=== PATIENT | male | born 1960 | race Caucasian/White ===

== ENCOUNTER 2024-03-07 07:10 | Day surgery (SDC) | payer OTHER, SELFPAY ==
[2024-03-07] VITALS (11 sets, daily range): BP systolic 104–137; BP diastolic 72–108; PULSE 59–88; RESP 10–20; TEMP 36.3–36.9; O2SAT 98–100; BMI 29.0
--- NOTE | 2024-03-07 07:14 | EKG_ITS ---
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
[2024-03-07 07:41] LABS: Basophils # (Auto) 0.2 Thou/mm3 (0.0-0.2); Basophils % (Auto) 2 % (0-2.5); Eosinophils # (Auto) 0.5 Thou/mm3 (0.0-0.5); Eosinophils % (Auto) 4 % (0-10); Hematocrit 40.3 % (41.0-53.0); Hemoglobin 12.9 g/dL (13.5-16.0); Immature Granulocytes % (Auto) 0 % (0-0); Immature Granulocytes Auto 0.02 Thou/mm3 (0.00-0.00); Lymphocytes # (Auto) 2.3 Thou/mm3 (1.0-4.8); Lymphocytes % (Auto) 22 % (10-50); Mean Corpuscular Hemoglobin 27.2 pg (25.0-35.0); Mean Corpuscular Volume 85 fL (80-100); Monocytes # (Auto) 1.3 Thou/mm3 (0.0-0.8); Monocytes % (Auto) 12 % (0-12); Neutrophils # (Auto) 6.2 Thou/mm3 (1.8-7.7); Neutrophils % (Auto) 60 % (37-80); Nucleated Red Blood Cell % 0 /100 WBC (0); Platelet Count 518 Thou/mm3 (140-440); Red Blood Count 4.75 Miln/mm3 (4.50-5.90); White Blood Count 10.4 Thou/mm3 (3.8-10.6)
[2024-03-07 07:58] LABS: Anion Gap 6 (7-16); BUN/Creatinine Ratio 17 Ratio (12-20); Blood Urea Nitrogen 15 mg/dL (9-23); Calcium 9.6 mg/dL (8.3-10.6); Carbon Dioxide 27.4 mMol/L (20.0-31.0); Chloride 108 mMol/L (98-107); Creatinine (Component) 0.9 mg/dL (0.6-1.3); Glucose 108 mg/dL (74-106); Osmolality,Calculated 283 (275-295); Potassium 4.8 mMol/L (3.4-5.1); Sodium 141 mMol/L (136-145); eGFR > 60 See Note
--- NOTE | 2024-03-07 08:00 | ECHO_ITS ---
Transesophageal Echo Report Ht (in): 75 Wt (lb): 240 Exam Location: Night Supervisor Status: Outpatient Mass Spec: Merry Carlos Indications: Procedure Performed: BP: 120 / 84 HR: 75 Contrast: Agitated Saline Rhythm: Atrial fibrillation Technical Quality: Fair Total Dose(mL): Medications The patient is medicated with 4.5mg of intravenous Versed and 100mcg of intravenous Fentanyl. Complications There are no complications prior to, during or in recovery from the transesophageal echocardiogram. FINDINGS Left Ventricle Normal left ventricular size, wall thickness, systolic function with no obvious regional wall motion abnormalities. The ejection fraction is visually estimated at 55-60%. Right Ventricle The right ventricle is normal in size and systolic function. Left Atrium The left atrium is severely dilated. There is moderate spontaneous echo contrast present in the left atrial cavity. Right Atrium The right atrium is severely dilated. Atrial Appendages The left atrial appendage appears normal with no evidence for thrombus. Atrial Septum The interatrial septum appears normal with no evidence of a shunt. Aorta The aorta is normal. Mitral Valve The mitral valve is normal. There is mild mitral valve regurgitation. Aortic Valve The aortic valve is trileaflet. Decreased mobility of the right coronary cusp. Moderate sclerosis wi thout stenosis. There is no significant aortic valve regurgitation. Tricuspid Valve The tricuspid valve is normal. There is mild tricuspid valve regurgitation. Pulmonic Valve The pulmonic valve is normal. There is no significant pulmonic valve regurgitation. Vessels The pulmonary artery appears normal. The inferior vena cava pulmonary and hepatic veins appear graham l. Pericardium The pericardium is normal. There is no significant pericardial effusion. CONCLUSIONS Indication: Afib & Cardioversion Negative bubble study. No evidence of PFO/ ASD or LA/PEDRO thrombus. Severe biatrial dilatation.There is moderate spontaneous echo contrast present in the left atrial ca vity. Normal LV size and function. Estimated EF 55-60% Normal RV size and function. Mild MR, TR Aortic right coronary cusp decreased mobility. Mild to moderate AV sclerosis without stenosis. . Grey Arteaga (Electronically Signed) Final Date: 07 March 2024 18:57
[2024-03-07 08:05] LABS: INR 1.1 (0.9-1.3); Partial Thromboplastin Time 28.6 Seconds (22.0-36.0); Prothrombin Time 11.9 Seconds (9.0-12.2)
[2024-03-07] MEDS: fentaNYL CIT INJ 50 mCg/ML AMP 2ML 125 MCG IVP (09:02)
[2024-03-07] MEDS: MIDAZOLAM INJ 1 MG/ML VIAL 2 ML 6 MG IV (09:02)
[2024-03-07] MEDS: BENZOCAINE 20% (Hurricaine) SPRAY 1 DOSE TOP (09:02)
--- NOTE | 2024-03-07 09:37 | ESOP_ITS ---
Procedure Direct current cardioversion for uncontrolled atrial flutter Moderate Conscious Sedation with Versed and Fentanyl Date of Procedure 03/07/24 Pre Op Diagnosis Atrial Fibrillation Indication Atrial Fibrillation Post Op Diagnosis Normal Sinus Rhythm restored. Procedure Description Patient was in atrial fibrillation and ventricular rate was controlled came in for elective cardioversion as patient was having significant symptoms for the Afib. Decision was made to perform cardioversion for the patient after performin g a transesophageal echocardiogram. Transesophageal echocardiogram was completed today and did not show any significant LA or PEDRO thrombus.? Please see [facility] report from today for rest of the findings.? Patient was already on anticoagulation with eliquis. Patient was taken to the petroleum laboratory technician for the [facility] and cardioversion, both anterior and posterior pads were placed.? Patient was given moderate sedation and received a total of 2 mg of Versed and 25 mcg of fentanyl prior to the procedure to provide him enough for sedation. A biphasic defibrillator was used.? A single 120 J synchronized shock was given and the patient converted successfully into normal sinus rhythm.? No complications during or after the procedure.? Patient is doing well.? His heart rate was stable between 50 to 70 bpm and appears to be normal sinus rhythm on the telemetry.? Recommend to perform an EKG to document normal sinus rhythm postprocedure.? Patient will be monitored in the petroleum laboratory technician for the next 1-2 hours and will be discharged home if hemodynamically stable. Will adjust his medications for atrial fibrillation as outpatient. Estimated Blood Loss 0 Specimen(s) Specimen(s): None Conclusion Successful direct current cardioversion of Atrial Fibrillation / Flutter to Normal Sinus Rhythm Recommendation Continue Ditliazem CD 240 mg Q Day if BP stable. Continue Eliquis 5 mg BID for anticaogulation. EKG to document NSR post procedure. No driving for 24 hours. Patient recommended to follow up in 1 week in the clinic. Surgical Staff Surgeon: Grey Arteaga MD
--- NOTE | 2024-03-07 09:41 | EKG_ITS ---
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
== END 2024-03-07 10:20 | disposition home or self-care (01) ==
LOC: S2EX 07:11 → SCCL 07:35
PROVIDERS: PCP Family Medicine; Referring Provider Internal Medicine Cardiovascular Disease; Visit Provider Internal Medicine Cardiovascular Disease
PROC: 5A2204Z Restoration of Cardiac Rhythm, Single (ICD-10-PCS; CPT 92960; principal; 2024-03-07 08:15)
PROC: (CPT 93312; 2024-03-07 08:15)
DX: I48.91 Unspecified atrial fibrillation (principal); Z01.810 Encounter for preprocedural cardiovascular examination
CPT/HCPCS: 92960; 36415; 80048; 85025; 85610; 85730; 93005; 93312; 99152; J2250; J3010; A9270